=== PATIENT | male | born 1940 | race Caucasian/White ===

== ENCOUNTER 2017-07-03 07:37 | Inpatient (IN) | payer OTHER ==
[~2017-07-03] VITALS: Ht 165.1 cm; Wt 68.4 kg
[2017-07-03] VITALS (15 sets, daily range): BP systolic 120–146; BP diastolic 51–66
[~2017-07-03 07:37] MED LIST: AMLODIPINE BESY10 MG PO; ASPIR 8181 M1 PO; ASPIRIN81 M1 PO; ATENOLOL25 M1 PO; BENAZEPRIL HCL10 MG PO; BENAZEPRIL HCL5 MG PO; FENOFIBRATE160 M1 PO; FISH OIL PO; FISH OIL SOFTG1 EACH; Feosol PO; Fish Oil PO; IRON; IRON55 MG PO; LOPRESSOR25 MG PO; LOTREL 5/101 CAPSULE PO; LOVASTATIN40 MG PO; Levaquin PO; Lopressor PO; METOPROLOL TART50 MG PO; NOVOLIN N100 UNIT/2 SC; NOVOLIN N100 UNITS/ SC; NOVOLIN,HU100 UNITS1 SC; OMEPRAZOLE40 M1 PO; VITAMIN B-12 PO
[2017-07-03 08:26] LABS: BASOPHIL (%) 0.2 % (0-1); EOSINOPHIL (%) 0.8 % (0-5); EOSINOPHIL COUNT 0.1 K/uL (0-0.3); HEMATOCRIT 20.5 % (38.0-50.0); HEMOGLOBIN 6.9 G/DL (12.5-16.6); MCH 30.9 PG (29.0-34.0); MCHC 33.7 G/DL (30.0-36.0); MCV 91.9 FL (86-99); MONOCYTE (%) 7.4 % (3-12); MONOCYTE COUNT 1.1 K/uL (0-0.8); NEUTROPHIL (%) 83.6 % (45-76); NEUTROPHIL COUNT 12.1 K/uL (1.8-6.4); PLATELET COUNT 347 K/uL (156-360); RBC DIS.WIDTH-CV 12.9 % (11.8-14.6); RBC DIS.WIDTH-SD 42.4 % (39-53); RED BLOOD COUNT 2.23 M/uL (4.00-5.50); WHITE BLOOD COUNT 14.4 K/uL (4.1-10.2)
[2017-07-03 08:31] LABS: ALBUMIN 3.5 g/dL (3.2-4.8); CHLORIDE 109 mEq/L (99-109); POTASSIUM 4.5 mEq/L (3.7-5.4); SODIUM 138 mEq/L (136-147)
[2017-07-03 08:33] LABS: GLUCOSE 138 mg/dL (70-99); TOTAL PROTEIN 7.9 g/dL (6.4-8.3)
[2017-07-03 08:35] LABS: TOTAL BILIRUBIN 0.5 mg/dL (0.0-1.0)
[2017-07-03 08:37] LABS: ALKALINE PHOSPHATASE 73 IU/L (3-129); GFR ESTIMATE (CALCULATED) 34 mL/min/ (58.99-99999)
[2017-07-03 08:38] LABS: UREA NITROGEN (BUN) 51 mg/dL (9-23)
[2017-07-03 08:39] LABS: AST (GOT) 27 IU/L (2-34)
[2017-07-03 08:40] LABS: ALT (GPT) 24 IU/L (3-49)
[2017-07-03 08:46] LABS: TROP-I INTERPRETATION NEGATIVE; TROPONIN-I 0.11 ng/mL (0.0-0.30)
[2017-07-03] MEDS ORDERED: LO-DOSE ASPIRIN81 M1 PO (10:25)
[2017-07-03] MEDS ORDERED: LOTENSIN40 MG PO (10:26)
[2017-07-03] MEDS ORDERED: FERROUS FUMARAT63 MG PO (10:28)
[2017-07-03] MEDS ORDERED: FISH OIL 1,0001 EAC7 PO (10:29)
[2017-07-03] MEDS ORDERED: LOPRESSOR50 MG PO (10:30)
[2017-07-03] MEDS ORDERED: KEFLEX500 MG PO (10:31)
[2017-07-03] MEDS ORDERED: ACTOS15 MG PO (10:31)
[2017-07-03] MEDS ORDERED: VITAMIN D31000 UNI2 PO (10:32)
[2017-07-03] MEDS ORDERED: VITAMIN B125000 MCG PO (10:33)
[2017-07-04] VITALS (7 sets, daily range): BP systolic 124–147; BP diastolic 59–86
[2017-07-04 05:42] LABS: BASOPHIL (%) 0.3 % (0-1); BASOPHIL COUNT 0.1 K/uL (0-0.1); EOSINOPHIL (%) 0.1 % (0-5); HEMATOCRIT 30.4 % (38.0-50.0); IMMATURE GRANULOCYTE (%) 1.5 % (0.0-0.7); LYMPHOCYTE (%) 4.8 % (15-42); LYMPHOCYTE COUNT 0.9 K/uL (1.0-2.8); MCH 29.1 PG (29.0-34.0); MCHC 33.9 G/DL (30.0-36.0); MONOCYTE COUNT 1.5 K/uL (0-0.8); NEUTROPHIL (%) 85.3 % (45-76); NEUTROPHIL COUNT 15.7 K/uL (1.8-6.4); NRBC (%) 0.1 /100 WBC (0-0); PLATELET COUNT 302 K/uL (156-360); RBC DIS.WIDTH-CV 15.4 % (11.8-14.6); WHITE BLOOD COUNT 18.4 K/uL (4.1-10.2)
[2017-07-04 05:45] LABS: HEMOGLOBIN 10.3 G/DL (12.5-16.6); MCV 85.9 FL (86-99); RED BLOOD COUNT 3.54 M/uL (4.00-5.50)
[2017-07-04 05:49] LABS: CHLORIDE 108 MEQ/L (99-109); CREATININE 1.9 MG/DL (0.6-1.3); GFR ESTIMATE (CALCULATED) 37 mL/min/ (58.99-99999); GLUCOSE 146 mg/dL (70-99); POTASSIUM 4.1 MEQ/L (3.7-5.4); SODIUM 136 MEQ/L (136-147); UREA NITROGEN (BUN) 43 mg/dL (9-23)
[2017-07-04 18:38] LABS: APPEARANCE CLEAR ((CLEAR)); BILIRUBIN NEGATIVE; BLOOD NEGATIVE; COLOR YELLOW ((YELLOW)); GLUCOSE (STRIP) NEGATIVE; KETONES 5; LEUKOCYTES NEGATIVE; NITRITE NEGATIVE; PROTEIN (STRIP) 30; SPECIFIC GRAVITY 1.014 (1.000-1.030); UROBILINOGEN 0.2 MG/DL (0.2-1.0)
[2017-07-05] VITALS (7 sets, daily range): BP systolic 118–145; BP diastolic 58–78
[2017-07-05 05:48] LABS: HEMATOCRIT 30.4 % (38.0-50.0); MCH 28.6 PG (29.0-34.0); MCHC 32.9 G/DL (30.0-36.0); MCV 86.9 FL (86-99); PLATELET COUNT 247 K/uL (156-360); RBC DIS.WIDTH-CV 14.9 % (11.8-14.6); RBC DIS.WIDTH-SD 47.6 % (39-53); WHITE BLOOD COUNT 15.1 K/uL (4.1-10.2)
[2017-07-05 06:31] LABS: ALBUMIN 2.8 G/DL (3.2-4.8); ALKALINE PHOSPHATASE 53 IU/L (3-129); ALT (GPT) 20 IU/L (3-49); AST (GOT) 27 IU/L (2-34); CHLORIDE 102 MEQ/L (99-109); GFR ESTIMATE (CALCULATED) 34 mL/min/ (58.99-99999); POTASSIUM 3.8 MEQ/L (3.7-5.4); SODIUM 135 MEQ/L (136-147); TOTAL BILIRUBIN 0.8 MG/DL (0.0-1.0); UREA NITROGEN (BUN) 42 mg/dL (9-23)
[2017-07-05 06:38] LABS: GLUCOSE 102 mg/dL (70-99)
[2017-07-06 04:17] VITALS: BP 135/61
[2017-07-06 07:26] VITALS: BP 130/62
[2017-07-06 10:32] VITALS: BP 142/58
[2017-07-06 16:26] VITALS: BP 135/66
[2017-07-06 19:29] VITALS: BP 136/63
[2017-07-06 23:24] VITALS: BP 146/63
[2017-07-07 04:41] VITALS: BP 154/70
[2017-07-07 06:39] LABS: BASOPHIL (%) 0.5 % (0-1); BASOPHIL COUNT 0.1 K/uL (0-0.1); EOSINOPHIL (%) 1.9 % (0-5); EOSINOPHIL COUNT 0.2 K/uL (0-0.3); HEMATOCRIT 31.6 % (38.0-50.0); HEMOGLOBIN 10.3 G/DL (12.5-16.6); IMMATURE GRANULOCYTE (%) 1.5 % (0.0-0.7); LYMPHOCYTE (%) 7.6 % (15-42); LYMPHOCYTE COUNT 0.8 K/uL (1.0-2.8); MCH 28.8 PG (29.0-34.0); MCHC 32.6 G/DL (30.0-36.0); MCV 88.3 FL (86-99); MONOCYTE (%) 11.7 % (3-12); MONOCYTE COUNT 1.2 K/uL (0-0.8); NEUTROPHIL (%) 76.8 % (45-76); NEUTROPHIL COUNT 7.6 K/uL (1.8-6.4); PLATELET COUNT 268 K/uL (156-360); RBC DIS.WIDTH-CV 13.9 % (11.8-14.6); RBC DIS.WIDTH-SD 44.5 % (39-53); RED BLOOD COUNT 3.58 M/uL (4.00-5.50); WHITE BLOOD COUNT 9.9 K/uL (4.1-10.2)
[2017-07-07 07:06] LABS: ALBUMIN 2.8 G/DL (3.2-4.8); ALKALINE PHOSPHATASE 62 IU/L (3-129); ALT (GPT) 24 IU/L (3-49); AST (GOT) 23 IU/L (2-34); CHLORIDE 104 MEQ/L (99-109); CREATININE 1.7 MG/DL (0.6-1.3); GFR ESTIMATE (CALCULATED) 42 mL/min/ (58.99-99999); GLUCOSE 92 mg/dL (70-99); POTASSIUM 3.7 MEQ/L (3.7-5.4); SODIUM 133 MEQ/L (136-147); TOTAL PROTEIN 6.8 G/DL (6.4-8.3); UREA NITROGEN (BUN) 42 mg/dL (9-23)
[2017-07-07 07:07] LABS: TOTAL BILIRUBIN 0.4 MG/DL (0.0-1.0)
[2017-07-07 08:17] VITALS: BP 150/65
[2017-07-07 11:46] VITALS: BP 131/62
[2017-07-07 16:33] VITALS: BP 134/60
[2017-07-07 19:42] VITALS: BP 143/64
[2017-07-08 00:06] VITALS: BP 145/64
[2017-07-08 04:44] VITALS: BP 149/68
[2017-07-08 08:03] VITALS: BP 138/65
[2017-07-08 11:22] VITALS: BP 148/66
[2017-07-08] MEDS ORDERED: CEFTIN500 MG PO (12:44)
[2017-07-08] MEDS ORDERED: DIGOXIN125 MCG PO (12:59)
== END 2017-07-08 14:37 | disposition home or self-care (01) | DRG 378 ==
LOC: EME 07:37 → EDOF 09:15 → 3EAST 09:15 → ENRESERV 09:26 → EDOF 09:26 → ENRESERV 10:08 → 3EAST 10:36
PROVIDERS: Emergency Medicine; Family Medicine; Internal Medicine Gastroenterology
PROC: 30233N1 Transfusion of Nonautologous Red Blood Cells into Peripheral Vein, Percutaneous Approach (ICD-10-PCS; principal; 2017-07-03)
PROC: 0DJ08ZZ Inspection of Upper Intestinal Tract, Via Natural or Artificial Opening Endoscopic (ICD-10-PCS; 2017-07-04)
DX: K29.41 Chronic atrophic gastritis with bleeding (principal); K21.0 Gastro-esophageal reflux disease with esophagitis; K31.819 Angiodysplasia of stomach and duodenum without bleeding; D50.0 Iron deficiency anemia secondary to blood loss (chronic); K92.1 Melena; I48.0 Paroxysmal atrial fibrillation; D72.829 Elevated white blood cell count, unspecified; I12.9 Hypertensive chronic kidney disease with stage 1 through stage 4 chronic kidney disease, or unspecified chronic kidney disease; N18.4 Chronic kidney disease, stage 4 (severe); E11.22 Type 2 diabetes mellitus with diabetic chronic kidney disease; E78.5 Hyperlipidemia, unspecified; E03.9 Hypothyroidism, unspecified; I25.10 Atherosclerotic heart disease of native coronary artery without angina pectoris; K57.30 Diverticulosis of large intestine without perforation or abscess without bleeding; J90 Pleural effusion, not elsewhere classified; I25.2 Old myocardial infarction; Z95.1 Presence of aortocoronary bypass graft; Z87.11 Personal history of peptic ulcer disease; Z87.891 Personal history of nicotine dependence; Z79.82 Long term (current) use of aspirin; Z83.3 Family history of diabetes mellitus
CPT/HCPCS: 71045; 74176; 80048; 80053; 81003; 82948; 83880; 84484; 85025; 85027; 86850; 86900; 86901; 86920; 87077; 87086; 87186; 93005; 93306; 94799; 99281; 99285; A6214; C9113; J0696; J1160; J1756; J1940; J7050; P9016